=== PATIENT | female | born 1935 | race Caucasian/White ===

== ENCOUNTER 2020-03-23 11:06 | Outpatient (CLI) | payer MEDICARE, SELFPAY ==
--- NOTE | ~2020-03-23 | MMUS_ITS ---
EXAMINATION: MM diagnostic henna BI w [place], US breast LT limited HISTORY: Left breast lump TECHNIQUE: Additional 3-D tomosynthesis images of were performed and synthetic 2-D images were genera sabi. CAD analysis was submitted and interpreted. High resolution breast ultrasound was performed. COMPARISON: None BREAST PARENCHYMAL COMPOSITION: There are scattered areas of fibroglandular density. FINDINGS: MAMMOGRAPHIC FINDINGS: There is an asymmetric irregular spiculated mass in the anterior aspect of the upper outer quadrant o f the left breast. No other suspicious mass or architectural distortion is evident. There are scattered bilateral benign -appearing calcifications. No skin thickening or retraction is noted. ULTRASOUND: At 1:00 1 cm from nipple corresponding to the mammographic area of concern and the clinical left kyra st lump there is an up to 16.6 mm irregular mass with posterior shadowing, suspicious for malignancy. Ultrasound-guided biopsy is recommended. IMPRESSION: 1. Approximately 1.7 cm irregular spiculated shadowing mass at 1:00 1 cm from nipple, highly suggesti ve of malignancy 2. Ultrasound-guided biopsy of left breast 1:00 mass is recommended BI-RADS category 5, highly suggestive of malignancy. Mammography Dir. Mandy Phillips was notified of the findings and the recommendation due to referring pramod gomez on staff, in order to facilitate reporting to the referring physician. I reported directly to the patient in the [facility] ultrasound department the suspicious mamm ographic and sonographic findings highly suggestive of malignancy and the recommendation for biopsy o n 03/23/2020 at 1255 hours. She expressed concern about surgery at her age, but I cautioned her that this kind of tumor can spread elsewhere, including bone, and it was important to follow up with biops y and treatment as recommended by her physicians. Reviewed, dictated and finalized at location A. IMPRESSION: 1. Approximately 1.7 cm irregular spiculated shadowing mass at 1:00 1 cm from n ipple, highly suggestive of malignancy 2. Ultrasound-guided biopsy of left breast 1:00 mass is recommended BI-RADS category 5, highly suggestive of malignancy. Mammography Dir. Mandy Phillips was notified of the findings and the recommendatio n due to referring physician on staff, in order to facilitate reporting to the referring physician. I reported directly to the patient in the [facility] ultrasound departme nt the suspicious mammographic and sonographic findings highly suggestive of ma lignancy and the recommendation for biopsy on 03/23/2020 at 1255 hours. She exp ressed concern about surgery at her age, but I cautioned her that this kind of tumor can spread elsewhere, including bone, and it was important to follow up w ith biopsy and treatment as recommended by her physicians.
== END 2020-03-23 11:07 | disposition home or self-care (01) ==
DX: Z12.31 Encounter for screening mammogram for malignant neoplasm of breast (principal); N63.20 Unspecified lump in the left breast, unspecified quadrant; R92.8 Other abnormal and inconclusive findings on diagnostic imaging of breast
CPT/HCPCS: 76642; 77062; 77066; G0279